=== PATIENT | male | born 1975 | race Caucasian/White ===

== ENCOUNTER 2017-11-29 00:05 | Emergency (ER) | payer SELFPAY ==
[~2017-11-29] VITALS: Ht 198.1 cm; Wt 90.7 kg
[2017-11-29] MEDS ORDERED: DEXTROSE 50% SYRINGE 50 ML IV ONE (00:21)
[2017-11-29] MEDS ORDERED: DEXTROSE (50%) 50ML SYRG IV ONE (00:30)
[2017-11-29] MEDS ORDERED: SODIUM CHLORIDE 0.9% 1,000 ML IVB ONE (00:32)
[2017-11-29] MEDS ORDERED: ONDANSETRON HCL 4 MG/2 ML VIAL IV ONE ×2 (00:45→02:45)
[2017-11-29] MEDS ORDERED: NALBUPHINE HCL 10 MG/1ml INJECTION IV ONE ×2 (00:45→02:45)
[2017-11-29 00:49] LABS: Basophils # (auto) 0.1 uL; Basophils % (auto) 1.1 % (0.0-2.0); Eosinophils # (auto) 1.4 uL; Hematocrit 42.6 % (41.0-53.0); Hemoglobin 14.3 g/dL (13.5-17.5); Lymphocytes # (auto) 5.3 uL; Lymphocytes % (auto) 43.8 % (10.0-50.0); Mean Corpuscular Hemoglobin 30.8 pg (28.0-32.0); Mean Corpuscular Hgb Conc. 33.7 g/dL (32.0-36.0); Mean Corpuscular Volume 91.4 fL (80.0-100.0); Monocytes # (auto) 0.9 uL; Monocytes % (auto) 7.3 % (0.0-12.0); Neutrophils # (auto) 4.3 uL; Neutrophils % (auto) 35.8 % (37.0-80.0); Nucleated Red Blood Cells % 0.1 %; Platelet Count (auto) 334 10^3/uL (140-450); Red Blood Cells 4.66 10^6/uL (4.5-5.90); Red Cell Distribution Width 13.9 % (11.8-14.3); White Blood Cell 12.1 10^3/uL (4.4-10.8)
[2017-11-29 01:04] LABS: Magnesium 2.3 mg/dL (1.6-2.6)
[2017-11-29 01:06] LABS: INR 0.95 (0.9-1.15); Partial Thromboplastin Time 23.6 sec (23.78-33.04); Prothrombin Time 10.2 sec (9.27-12.13)
[2017-11-29 01:07] LABS: Albumin 4.2 g/dL (3.4-5.0); Calcium 9.4 mg/dL (8.5-10.1); Potassium 3.5 mmol/L (3.5-5.1)
[2017-11-29 01:09] LABS: BUN/Creatinine Ratio 15.5
[2017-11-29 01:12] LABS: Bilirubin, Total 0.3 mg/dL (0.2-1.0); Total Protein 8.4 g/dL (6.4-8.2)
[2017-11-29] MEDS ORDERED: SODIUM CHLORIDE 0.9% 1,000 ML IV ONE (02:45)
[2017-11-29] MEDS ORDERED: PROMETHAZINE HCL 25 MG/ML 1ML IM ONE (05:00)
[2017-11-29] MEDS ORDERED: PROMETHAZINE HCL 25 MG RECT SUPP PR ONE (05:15)
[2017-11-29 05:43] LABS: Urine Amorphous Crystal FEW /hpf (None Seen); Urine Bacteria NONE SEEN /hpf (None Seen); Urine Blood Negative /uL (Negative); Urine Mucus FEW (None Seen); Urine Specific Gravity 1.021 (1.001-1.035); Urine WBC 4 /hpf (0 - 3)
[2017-11-29] MEDS ORDERED: METOCLOPRAMIDE HCL 5MG/ml INJ 2ml VIAL IV ONE (06:00)
[2017-11-29 06:12] VITALS: BP 144/86
== END 2017-11-29 16:07 | disposition home or self-care (01) ==
LOC: ER 00:06
DX: R10.9 Unspecified abdominal pain (principal); E11.65 Type 2 diabetes mellitus with hyperglycemia; Z88.0 Allergy status to penicillin
CPT/HCPCS: 36415; 74176; 80053; 81001; 82150; 82962; 83690; 83735; 85025; 85610; 85730; 96361; 96374; 96375; 96376; 99285; J2300; J2405; J2765; J7040; J7042